=== PATIENT | female | born 1955 | race Caucasian/White ===

== ENCOUNTER 2019-01-31 08:30 | Inpatient (IN) | payer OTHER ==
[~2019-01-31] VITALS: Ht 157.5 cm; Wt 78.9 kg
[2019-01-31] MEDS ORDERED: CLONAZEPAM2 MG PO (10:58)
[2019-01-31] MEDS ORDERED: LIPITOR40 MG PO (10:59)
[2019-02-08] MEDS ORDERED: OXYC1TAB9 PO (08:49)
[2019-02-08] MEDS ORDERED: HYOSCYAMINE0.125 M1 SL (08:49)
[2019-02-08] MEDS ORDERED: INTESTINEX680 M1 PO (08:50)
== END 2019-02-08 09:27 | disposition home or self-care (01) | DRG 331 ==
LOC: SURG 02-04 06:20 → O/R 02-04 06:20 → SURG 02-04 13:44 → O/R 02-04 16:45 → SURG 02-08 09:27
PROVIDERS: ADMIT Surgery
PROC: 07TB4ZZ Resection of Mesenteric Lymphatic, Percutaneous Endoscopic Approach (ICD-10-PCS; 2019-02-04)
PROC: 0DTH4ZZ Resection of Cecum, Percutaneous Endoscopic Approach (ICD-10-PCS; principal; 2019-02-04 16:45)
DX: D12.0 Benign neoplasm of cecum (principal); R59.0 Localized enlarged lymph nodes; I10 Essential (primary) hypertension